=== PATIENT | female | born 1985 | race Caucasian/White ===

== ENCOUNTER → 2020-09-19 | Outpatient (CLI) | payer BC ==
--- NOTE | 2020-09-20 00:28 | RAD ---
Pelvic ultrasound dated 09/19/2020. No comparison available. Clinical data indication: Pelvic pain. Cyst on recent CT. FINDINGS: Transabdominal abdominal and transvaginal imaging performed. Uterus measures 7.9 x 4.9 x 3.8 cm. No f ocal uterine mass. Endometrium is normal in thickness measuring 2.7 mm. Right ovary measures 2.1 x 1.9 x 1.3 cm. Left ovary measures 2.6 x 1.9 x 2.2 cm. Normal color Doppler flow to both ovaries. Simple appearing right ovarian cyst measures up to 1.3 cm. There is also a sim ple appearing left ovarian cyst measuring up to 1.8 cm. Small complex cystic foci near the cervix. IMPRESSION: 1. No acute sonographic abnormality. 2. Small simple cysts or dominant follicles at each ovary. 3. Complex cystic foci at the cervical region, likely nabothian cysts. Electronically signed by: Kraig Solo MD (09/20/2020 12:26 AM) [facility]
== END ==
LOC: US 14:53
PROVIDERS: ATTEND Obstetrics & Gynecology
DX: N83.291 Other ovarian cyst, right side (principal)
CPT/HCPCS: 76830; 76856